=== PATIENT | male | born 1975 | race African-American/Black ===

== ENCOUNTER 2021-07-12 16:42 | Emergency (ER) | payer OTHER ==
[~2021-07-12] VITALS: Ht 175.3 cm; Wt 65.8 kg
[~2021-07-12 16:42] MED LIST: FLEXERIL PO; HALDOL DECAN50 MG/M1; NORCO 5-325 TA1 EACH PO
[2021-07-12 17:18] LABS: ABSOLUTE NEUTROPHILS 3.9 thou/uL (1.4-8.2); BASOPHILS 0.6 % (0.0-2.0); EOSINOPHILS 0.9 % (0.0-3.0); HEMATOCRIT 38.9 % (42.0-52.0); HEMOGLOBIN 12.8 gm/dL (14.0-18.0); LYMPHOCYTES 20.5 % (24.0-44.0); MCH 28.6 pg (26.0-34.0); MCHC 32.9 g/dL (28.0-37.0); MCV 86.7 fL (80.0-100.0); MONOCYTES 9.9 % (1.0-8.0); PLATELET COUNT 264 thou/uL (150-400); POLYS 68.1 % (36.0-66.0); RBC 4.48 mil/uL (4.50-6.00); RDW 13.7 % (10.5-14.5); WBC 5.7 thou/uL (4.0-11.0)
[2021-07-12 17:21] LABS: CALCIUM 9.1 mg/dL (8.5-10.1); CREATININE 1.1 mg/dL (0.7-1.3); POTASSIUM 3.5 mmol/L (3.5-5.1)
[2021-07-12 17:49] LABS: AMP/METHAMP Negative (Negative); BARBITURATES Negative (Negative); BENZODIAZEPINES Negative (Negative); COCAINE Negative (Negative); METHADONE Negative (Negative); OPIATES Negative (Negative); PCP POSITIVE (Negative)
--- NOTE | 2021-07-13 07:12 | EKG ---
[facility] [place] [address] ELECTROCARDIOGRAM REPORT Name: SATISH CABELLO Room #: REG [facility]#: [id number] Admission: 07/12/21 Attend Phys: Discharge: Date of : 79 Report #: [id number] [facility] ED Test Date: 2021-07-12 Test Time: 19:17:56 Pat Name: SATISH CABELLO Department: Room: Gender: M Appellate Law Clerk: MPAMARQUIS : 1975 Requested By: Satish Newman Order Number: [id number] MD: Juan Carlos Lorenz Measurements Intervals [facility] Rate: 63 P: 65 SD: 119 QRS: 75 QRSD: 98 T: 63 QT: 391 QTc: 401 Interpretive Statements Sinus rhythm Borderline short SD interval RSR' in V1 or V2, probably normal variant ST elev, probable normal early repol pattern Baseline wander in lead(s) V6 No previous ECG available for comparison Electronically Signed On 07-13-2021 7:11:56 CDT by Juan Carlos Lorenz [email or web address] <ELECTRONICALLY SIGNED> By: Juan Carlos Lorenz MD, [facility] 07/13/21 0711 16 16 Juan Carlos Lorenz MD, [facility] /EPI
[2021-07-14 13:40] VITALS: BP 96/57
== END 2021-07-14 13:44 | disposition home or self-care (01) ==
LOC: ER 16:42
PROVIDERS: Emergency Medicine
DX: F20.9 Schizophrenia, unspecified (principal); Z20.822 Contact with and (suspected) exposure to COVID-19; F17.210 Nicotine dependence, cigarettes, uncomplicated; F12.90 Cannabis use, unspecified, uncomplicated; F19.10 Other psychoactive substance abuse, uncomplicated; Z88.0 Allergy status to penicillin